=== PATIENT | female | born 1985 | race Caucasian/White ===

== ENCOUNTER 2017-09-09 16:41 | Emergency (ER) | payer OTHER ==
[~2017-09-09] VITALS: Ht 160 cm; Wt 63.0 kg
[~2017-09-09 16:41] MED LIST: AUGM875T PO; PERC10TA27 PO
[2017-09-09 17:16] VITALS: BP 133/83; PULSE 80; RESP 16; TEMP 98.3; O2SAT 100
[2017-09-09] MEDS ORDERED: ETHI1TAB3 PO (18:02)
[2017-09-09] MEDS ORDERED: SODIUM CHLORIDE 0.9% FLUSH 10 ML FLUSH IVF PRN (18:15)
[2017-09-09] MEDS ORDERED: SODIUM CHLOR 0.9% 1000 ML INJ 1,000 ML IV ONE (18:15)
[2017-09-09] MEDS ORDERED: KETOROLAC TROMETHAMINE 30 MG/ML (IVP) VIAL IV PUSH ONE (18:15)
--- NOTE | 2017-09-09 18:24 | PD ---
HPI Chief Complaint: Chest Pain Time Seen by Provider: 17:52 Travel History International Travel<30 days: No Contact w/Intl Traveler<30days: No Traveled to known affect area: No History of Present Illness HPI Patient is a 31-year-old female with history of anxiety who presents to emergency room with complaints of chest pain. She reports that for the past 3 weeks, she has persistent pains to her chest, patient reports that her chest pain is substernal nature, reports shortness of breath with her symptoms. Patient reports that pain has been constant over the past 3 weeks, and reports that it has been unrelenting. Patient denies any radiation of pain. Patient denies any nausea or vomiting with symptoms, denies history of chest pain in the past. Reports that she does intermittently get palpitations. Patient denies history of hypertension or hyperlipidemia or diabetes, patient denies any drug abuse, denies any family history of early coronary disease or MA. Patient reports that the only drug that she takes is her control pills, denies any recent travels. Patient reports that for the past 3 months, she has been working out on a regular basis. Reports that she has been doing more chest exercises recently and has noticed an increased weight lost. PFSH Past Medical History Anxiety: Yes Diminished Hearing: No Musculoskeletal: Yes (BACK PAIN) ?: Not LMP: 08/19/17 : 0 Past Surgical History Tonsillectomy: Yes Social History Alcohol Use: No Tobacco Use: No Substance Use: Yes (marijuana) Allergies-Medications (Allergen,Severity, Reaction): Coded Allergies: metaxalone (Unverified Allergy, Mild, heart races., 09/09/17) Reported Meds & Prescriptions Reported Meds & Active Scripts Active Reported Corine (Drospirenone-Ethinyl Estradiol) 3-0.02 Mg Tab 1 Tab PO DAILY Review of Systems General / Constitutional: No: Fever Eyes: No: Visual changes HENT: No: Headaches Cardiovascular: Positive: Chest Pain or Discomfort Respiratory: Positive: Shortness of Breath Gastrointestinal: No: Abdominal Pain Genitourinary: No: Dysuria Musculoskeletal: No: Pain Skin: No Rash Neurologic: No: Weakness Psychiatric: No: Depression Endocrine: No: Polydipsia Hematologic/Lymphatic: No: Easy Bruising Physical Exam Narrative GENERAL: NAD SKIN: Focused skin assessment warm/dry. HEAD: Atraumatic. Normocephalic. EYES: Pupils equal and round. No scleral icterus. No injection or drainage. ENT: No nasal bleeding or discharge. Mucous membranes pink and moist. NECK: Trachea midline. No JVD. CARDIOVASCULAR: Regular rate and rhythm. No murmur appreciated. RESPIRATORY: No accessory muscle use. Clear to auscultation. Breath sounds equal bilaterally. GASTROINTESTINAL: Abdomen soft, non-tender, nondistended. Hepatic and splenic margins not palpable. MUSCULOSKELETAL: No obvious deformities. No clubbing. No cyanosis. No edema. NEUROLOGICAL: Awake and alert. No obvious cranial nerve deficits. Motor grossly within normal limits. Normal speech. PSYCHIATRIC: Patient anxious on exam Data Data Last Documented VS Vital Signs Date Time Temp Pulse Resp B/P (MAP) Pulse Ox O2 Delivery O2 Flow Rate FiO2 09/09/17 18:40 68 16 132/78 (96) 99 Room Air 09/09/17 17:16 98.3 Orders Orders Electrocardiogram (09/09/17 ) Electrocardiogram (09/09/17 18:06) Ckmb (Isoenzyme) Profile (09/09/17 18:06) Complete Blood Count With Diff (09/09/17 18:06) Comprehensive Metabolic Panel (09/09/17 18:06) D-Dimer (09/09/17 18:06) Magnesium (Mg) (09/09/17 18:06) Prothrombin Time / Inr (Pt) (09/09/17 18:06) Act Partial Throm Time (Ptt) (09/09/17 18:06) Troponin I (09/09/17 18:06) Lipase (09/09/17 18:06) Chest, Single Ap (09/09/17 18:06) Ecg Monitoring (09/09/17 18:06) Iv Access Insert/Monitor (09/09/17 18:06) Oximetry (09/09/17 18:06) Sodium Chloride 0.9% Flush (Ns Flush) (09/09/17 18:15) Ed Urine Pregnancytest Poc (09/09/17 18:06) Sodium Chlor 0.9% 1000 Ml Inj (Ns 1000 M (09/09/17 18:15) Drug Screen, Random Urine (09/09/17 18:07) Thyroid Stimulating Hormone (09/09/17 18:07) Ketorolac Inj (Toradol Inj) (09/09/17 18:15) Labs Laboratory Tests Test 09/09/17 18:20 09/09/17 18:25 Urine Barbiturates Screen NEG Urine Amphetamines Screen NEG Urine Cannabinoids Screen NEG White Blood Count 14.1 TH/MM3 Red Blood Count 4.45 MIL/MM3 Hemoglobin 12.6 GM/DL Hematocrit 37.8 % Mean Corpuscular Volume 84.8 FL Mean Corpuscular Hemoglobin 28.2 PG Mean Corpuscular Hemoglobin Concent 33.3 % Red Cell Distribution Width 12.0 % Platelet Count 311 TH/MM3 Mean Platelet Volume 9.4 FL Neutrophils (%) (Auto) 59.4 % Lymphocytes (%) (Auto) 33.6 % Monocytes (%) (Auto) 5.7 % Eosinophils (%) (Auto) 0.9 % Basophils (%) (Auto) 0.4 % Neutrophils # (Auto) 8.3 TH/MM3 Lymphocytes # (Auto) 4.8 TH/MM3 Monocytes # (Auto) 0.8 TH/MM3 Eosinophils # (Auto) 0.1 TH/MM3 Basophils # (Auto) 0.1 TH/MM3 CBC Comment DIFF FINAL Differential Comment Sodium Level 139 MEQ/L Potassium Level 3.4 MEQ/L Chloride Level 104 MEQ/L [facility] Medical Decision Making Medical Screen Exam Complete: Yes Emergency Medical Condition: Yes Medical Record Reviewed: Yes Interpretation(s) EKG at 1757: NSR at 67bpm, qt/qtc: 402/418, no acute st or t wave changes Vital Signs Date Time Temp Pulse Resp B/P (MAP) Pulse Ox O2 Delivery O2 Flow Rate FiO2 09/09/17 17:16 98.3 80 16 133/83 (100) 100 Differential Diagnosis Differential includes anxiety, abnormal tsh, pe, acs, arrhythmia, electrolyte abnormality, pneumothorax Narrative Course Patient is a 31-year-old female who presents to ER with c/o of chest pain which has been ongoing for the past 3 weeks. Reports that pain is substernal in nature, nothing makes pain better or worse. Patient was placed on a cardiac catheterization technologist upon arrival to the ER. EKG: NSR at 67bpm, qt/qtc: 402/418, no acute st or t changes. Lab work including CBC, BMP, TSH ordered. CE x 1 ordered to rule out infectious etiology of chest pain including but not limited to pericarditis or endocarditis. An IV dose of Toradol ordered as patient's symptoms are most likely muscle skeletal nature. D.Dimer ordered as patient is on BCP and is c/o of sob with her chest pain. Xray of chest ordered to evaluate for possible pneumo. Patient re-evaluated, patient with slight relief of symptoms with toradol 15mg IV Patient signed out to care of Dr. Hernandez at change of shift Lyric Hermosillo DO Sep 09, 2017 18:24
[2017-09-09 18:33] VITALS: RESP 18; O2SAT 98
--- NOTE | 2017-09-09 18:35 | RADRPT ---
EXAM DATE/TIME: 09/09/2017 18:25 [facility] COMPARISON: No previous studies available for comparison. INDICATIONS : Chest pain. Short of breath. MEDICAL HISTORY : None. SURGICAL HISTORY : None. ENCOUNTER: Initial ACUITY: 3 weeks PAIN SCORE: 4/10 LOCATION: Bilateral chest FINDINGS: A single view of the chest demonstrates the lungs to be symmetrically aerated without evidence of mas s, infiltrate or effusion. The cardiomediastinal contours are unremarkable. Osseous structures are intact. CONCLUSION: Normal examination. Kashif Andrews MD on September 09, 2017 at 18:33 Board Certified Radiologist. This report was verified electronically.
[2017-09-09 18:40] VITALS: BP 132/78; PULSE 68; RESP 16; O2SAT 99
[2017-09-09 18:43] LABS: AUTOMATED NEUTROPHIL # 8.3 TH/MM3 (1.8-7.7); BASOPHIL # 0.1 TH/MM3 (0-0.2); BASOPHIL % 0.4 % (0.0-2.0); EOSINOPHIL # 0.1 TH/MM3 (0-0.4); EOSINOPHIL % 0.9 % (0.0-4.0); HEMATOCRIT 37.8 % (35.0-46.0); HEMO FLAGS DIFF FINAL; LYMPH % 33.6 % (9.0-44.0); LYMPHOCYTE # 4.8 TH/MM3 (1.0-4.8); MEAN CELL VOLUME 84.8 FL (80.0-100.0); MEAN CORPUSCULAR HEMOGLOBIN 28.2 PG (27.0-34.0); MEAN CORPUSCULAR HGB CONC 33.3 % (32.0-36.0); MONO % 5.7 % (0.0-8.0); NEUT % 59.4 % (16.0-70.0); PLATELET COUNT 311 TH/MM3 (150-450); RED BLOOD COUNT 4.45 MIL/MM3 (4.00-5.30); WHITE BLOOD COUNT 14.1 TH/MM3 (4.0-11.0)
[2017-09-09 18:48] LABS: CHLORIDE 104 MEQ/L (98-107); POTASSIUM 3.4 MEQ/L (3.5-5.1); SODIUM (NA) 139 MEQ/L (136-145)
[2017-09-09 18:52] LABS: ANION GAP 9 MEQ/L (5-15); BICARBONATE 26.4 MEQ/L (21.0-32.0); BLOOD UREA NITROGEN 14 MG/DL (7-18); MAGNESIUM 2.2 MG/DL (1.5-2.5)
[2017-09-09 18:55] LABS: ALT (GPT) 33 U/L (10-53); APTT (PATIENT) 27.9 SEC (24.3-30.1); AST (GOT) 19 U/L (15-37); GLOMERULAR FILTRATION RATE 79 ML/MIN (>89); INTERNATIONAL NORMALIZED RATIO 0.9 RATIO; PROTHROMBIN TIME - PATIENT 10.2 SEC (9.8-11.6)
[2017-09-09 18:57] LABS: TOTAL BILIRUBIN ADULT 0.3 MG/DL (0.2-1.0)
[2017-09-09 18:58] LABS: ALKALINE PHOSPHATASE 61 U/L (45-117); CREATINE KINASE 102 U/L (26-192)
[2017-09-09 19:10] LABS: CKMB 0.7 NG/ML (0.5-3.6)
[2017-09-09 19:18] VITALS: BP 121/83; PULSE 68; RESP 20; TEMP 98.1; O2SAT 100
[2017-09-09] MEDS ORDERED: KETOROLAC TROMETHAMINE 60 MG/2 ML (IM) VIAL IVP ONE (20:00)
[2017-09-09] MEDS ORDERED: IBUP-232 PO (20:13)
--- NOTE | 2017-09-09 20:17 | PD ---
Physical Exam Time Seen by Provider: 20:[address] Hermosillo left this patient with me to check the results of the laboratory and make a disposition, likely discharge. Data Data Last Documented VS Vital Signs Date Time Temp Pulse Resp B/P (MAP) Pulse Ox O2 Delivery O2 Flow Rate FiO2 09/09/17 19:23 74 20 100 09/09/17 19:18 98.1 121/83 (96) 09/09/17 18:40 Room Air Orders Orders Electrocardiogram (09/09/17 ) Electrocardiogram (09/09/17 18:06) Ckmb (Isoenzyme) Profile (09/09/17 18:06) Complete Blood Count With Diff (09/09/17 18:) Comprehensive Metabolic Panel (09/09/17 18:06) D-Dimer (09/09/17 18:) Magnesium (Mg) (09/09/17 18:06) Prothrombin Time / Inr (Pt) (09/09/17 18:06) Act Partial Throm Time (Ptt) (09/09/17 18:06) Troponin I (09/09/17 18:06) Lipase (09/09/17 18:06) Chest, Single Ap (09/09/17 18:06) Ecg Monitoring (09/09/17 18:06) Iv Access Insert/Monitor (09/09/17 18:06) Oximetry (09/09/17 18:06) Sodium Chloride 0.9% Flush (Ns Flush) (09/09/17 18:15) Ed Urine Pregnancytest Poc (09/09/17 18:06) Sodium Chlor 0.9% 1000 Ml Inj (Ns 1000 M (09/09/17 18:15) Drug Screen, Random Urine (09/09/17 18:07) Ketorolac Inj (Toradol Inj) (09/09/17 18:15) CKMB (09/09/17 18:25) CKMB% (09/09/17 18:25) Thyroid Stimulating Hormone (09/09/17 18:25) Ketorolac Inj (Toradol Inj) (09/09/17 20:00) Labs Laboratory Tests Test 09/09/17 18:20 09/09/17 18:25 Urine Opiates Screen NEG Urine Barbiturates Screen NEG Urine Amphetamines Screen NEG Urine Benzodiazepines Screen NEG Urine Cocaine Screen NEG Urine Cannabinoids Screen NEG White Blood Count 14.1 TH/MM3 Red Blood Count 4.45 MIL/MM3 Hemoglobin 12.6 GM/DL Hematocrit 37.8 % Mean Corpuscular Volume 84.8 FL Mean Corpuscular Hemoglobin 28.2 PG Mean Corpuscular Hemoglobin Concent 33.3 % Red Cell Distribution Width 12.0 % Platelet Count 311 TH/MM3 Mean Platelet Volume 9.4 FL Neutrophils (%) (Auto) 59.4 % Lymphocytes (%) (Auto) 33.6 % Monocytes (%) (Auto) 5.7 % Eosinophils (%) (Auto) 0.9 % Basophils (%) (Auto) 0.4 % Neutrophils # (Auto) 8.3 TH/MM3 Lymphocytes # (Auto) 4.8 TH/MM3 Monocytes # (Auto) 0.8 TH/MM3 Eosinophils # (Auto) 0.1 TH/MM3 Basophils # (Auto) 0.1 TH/MM3 CBC Comment DIFF FINAL Differential Comment Prothrombin Time 10.2 SEC Prothromb Time International Ratio 0.9 RATIO Activated Partial Thromboplast Time 27.9 SEC D-Dimer Quantitative (PE/DVT) 0.41 MG/L FEU Blood Urea Nitrogen 14 MG/DL Creatinine 0.84 MG/DL Random Glucose 77 MG/DL Total Protein 7.8 GM/DL Albumin 4.0 GM/DL Calcium Level 8.8 MG/DL Magnesium Level 2.2 MG/DL Alkaline Phosphatase 61 U/L Aspartate Amino Transf (AST/SGOT) 19 U/L Alanine Aminotransferase (ALT/SGPT) 33 U/L Total Bilirubin 0.3 MG/DL Sodium Level 139 MEQ/L Potassium Level 3.4 MEQ/L Chloride Level 104 MEQ/L Carbon Dioxide Level 26.4 MEQ/L Anion Gap 9 MEQ/L Estimat Glomerular Filtration Rate 79 ML/MIN Total Creatine Kinase 102 U/L Creatine Kinase MB 0.7 NG/ML Troponin I LESS THAN 0.02 NG/ML Lipase 206 U/L Thyroid Stimulating Hormone 3rd Gen 2.440 uIU/ML [facility] Medical Record Reviewed: Yes Supervised Visit with MARCUS: Yes Interpretation(s) The chest x-ray is normal. The coagulation profile is normal and the d-dimer is normal. The EKG is normal with a normal sinus rhythm rate of 67. The complete metabolic profile shows a GFR of 79 and potassium 3.4 but is otherwise normal. The cardiac enzymes are normal. The TSH is normal and the lipase is normal. The toxicology screen is normal. The CBC shows a white count of 14, 100 but is otherwise unremarkable. Differential Diagnosis Pleurisy, pulmonary embolus, pneumothorax, pneumonia, bronchitis, electrolyte disorder Narrative Course The lab work shows a slight elevation of the white count. She denies any fever and denies any infection source that she is aware of and denies any cough. I cannot reproduce her pain by pressing on her chest wall and this appears to be pleuritic type pain. Diagnosis Primary Impression: Pleurisy Additional Instruction: As we discussed, this appears to be pleurisy which is inflammation of the coverings of your lungs. Follow-up with your primary care physician this week. We will give you the laboratory/imaging results and we did here. These are to be given to her doctor. Med/Other Pt SpecificInfo: Prescription(s) given Scripts Ibuprofen (Ibuprofen) 600 Mg Tab 600 MG PO TID, #33 TAB 0 Refills Prov: Luciano Hernandez MD 09/09/17 Disposition: 01 DISCHARGE HOME Condition: Stable Luciano Hernandez MD Sep 09, 2017 20:17
[2017-09-09 20:26] VITALS: BP 121/73
--- NOTE | 2017-09-10 21:46 | EKG ---
Date Performed: 09/09/2017 Time Performed: 17:57:27 PTAGE: 31 years EKG: Sinus rhythm NORMAL ECG NO PREVIOUS TRACING DOCTOR: Korey Hayes Interpretating Date/Time 09/10/2017 21:46:20
== END 2017-09-09 20:28 | disposition home or self-care (01) ==
LOC: PHED 16:41
DX: R09.1 Pleurisy (principal); R00.2 Palpitations; Z79.3 Long term (current) use of hormonal contraceptives
CPT/HCPCS: 71010; 80053; 80307; 82550; 82552; 83690; 83735; 84443; 84484; 84703; 85025; 85379; 85610; 85730; 93005; 96361; 96374; 96376; 99285; J1885; J7030